=== PATIENT | female | born 1970 | race Hispanic/Latino ===

== ENCOUNTER 2019-06-15 11:32 | Emergency (ER) | payer MEDICAID, OTHER ==
[2019-06-15 12:40] VITALS: BP 139/85
[2019-06-15] MEDS ORDERED: BUTALB/ACETAMINOPHEN/CAFFEINE TAB PO ONE (13:53)
--- NOTE | 2019-06-15 14:34 | Emergency Department Report ---
ED Seizure HPI - General Chief Complaint: Seizure Stated Complaint: SEIZURES Time Seen by Provider: 06/15/19 13:53 Source: patient Mode of arrival: Stretcher Limitations: No Limitations - History of Present Illness Initial Comments: 48-year-old female with history of nonepileptic seizures, depression presents to ED from [facility] for evaluation. Patient states she was sent to the ED because she had 2 seizures on yesterday. Patient states she currently takes Lamictal and Topamax. Patient has been seen previously by neurologist, has had EEGs as well. Patient states one physician believes she may be having basilar migraines, not actual seizures. Patient states she has an appointment in a few months with a seizure specialist. Patient is currently at her baseline. No seizures today. Only complaining of a mild headache, which usually occurs after she has her seizures. MD Complaint: seizure -: days(s) (1) Description of Episode: loss of consciousness, post-event confusion Witnessed:: Yes Trauma: No Seizure History: known seizure disorder Associated Symptoms: denies other symptoms Treatments Prior to Arrival: benzodiazepines (ativan) - Related Data Allergies Allergy/AdvReac Type Severity Reaction Status Date / Time No Known Allergies Allergy Unverified 06/15/19 12:36 ED Review of Systems ROS: Stated complaint: SEIZURES Other details as noted in HPI Comment: All other systems reviewed and negative Constitutional: denies: chills, fever Neurological: headache, other (seizure activity reported on yesterday) ED Past Medical Hx - Past Medical History Previous Medical History?: Yes Hx Diabetes: Yes Hx Seizures: Yes Hx Psychiatric Treatment: Yes - Surgical History Past Surgical History?: No - Social History Smoking Status: Never Smoker Substance Use Type: None ED Physical Exam - General Limitations: No Limitations General appearance: alert, in no apparent distress - Head Head exam: Present: atraumatic, normocephalic - Eye Eye exam: Present: normal appearance, PERRL, EOMI - ENT ENT exam: Present: mucous membranes moist - Neck Neck exam: Present: normal inspection - Respiratory Respiratory exam: Present: normal lung sounds bilaterally. Absent: respiratory distress - Cardiovascular Cardiovascular Exam: Present: regular rate, normal rhythm - GI/Abdominal GI/Abdominal exam: Absent: distended - Extremities Exam Extremities exam: Present: normal inspection - Neurological Exam Neurological exam: Present: alert, oriented X3, CN II-XII intact. Absent: motor sensory deficit - Psychiatric Psychiatric exam: Present: normal affect, normal mood - Skin Skin exam: Present: warm, dry, intact, normal color. Absent: rash ED Course Vital Signs 06/15/19 12:38 Temperature 98.5 F Pulse Rate 85 Respiratory 18 Rate Blood Pressure 139/85 O2 Sat by Pulse 97 Oximetry ED Medical Decision Making - Medical Decision Making Patient is currently at her baseline. Currently on medication for her seizures which patient states is increased by [facility]. Neuro exam is nonfocal. No seizures today. Patient does not require any workup at this time. Patient advised to follow-up with her neurologist and primary care physician upon discharge from [place]. - Differential Diagnosis seizure Critical care attestation.: If time is entered above; I have spent that time in minutes in the direct care of this critically ill patient, excluding procedure time. ED Disposition Clinical Impression: Seizure disorder Disposition: DC-01 TO HOME OR SELFCARE Is pt being admited?: No Condition: Stable Instructions: Non-epileptic Seizures (ED) Additional Instructions: Patient reports she should be taking topamax 25 mg every other day, per her physician. Referrals: PRIMARY CARE, [Primary Care Provider] - [facility] Time of Disposition: 14:40
== END 2019-06-15 15:02 | disposition home or self-care (01) ==
LOC: ED 11:32
DX: G40.909 Epilepsy, unspecified, not intractable, without status epilepticus (principal); F32.9 Major depressive disorder, single episode, unspecified; E11.9 Type 2 diabetes mellitus without complications
CPT/HCPCS: 99282

== ENCOUNTER 2020-09-13 13:10 | Outpatient (CLI) | payer OTHER ==
--- NOTE | 2020-09-13 14:26 | XRay Report ---
CERVICAL SPINE 3 VIEWS INDICATION / CLINICAL INFORMATION: NECK PAIN. COMPARISON: None available. FINDINGS: VERTEBRAE: No acute fracture. No significant malalignment. DISC SPACES / FACET JOINTS:Moderate intervertebral disc space narrowing at C5-6 and C6-7. There is ma rginal osteophytosis at these levels, as well. Mild facet degenerative arthrosis. PARASPINAL SOFT TISSUES:No significant abnormality. ADDITIONAL FINDINGS: None. Signer Name: Ruddy Luna MD Signed: 09/13/2020 2:22 PM Workstation Name: [id number]
--- NOTE | 2020-09-13 14:27 | XRay Report ---
LEFT HIP 3 VIEW(S) INDICATION / CLINICAL INFORMATION: LEFT HIP PAIN COMPARISON: None available. FINDINGS: BONES / JOINT(S): No acute fracture or subluxation. No significant arthritis. SOFT TISSUES: No significant abnormality. ADDITIONAL FINDINGS: None. Signer Name: Ruddy Luna MD Signed: 09/13/2020 2:22 PM Workstation Name: [id number]
== END 2020-09-13 13:11 | disposition home or self-care (01) ==
LOC: XRAY 13:10
PROVIDERS: ATTEND Internal Medicine
DX: M47.812 Spondylosis without myelopathy or radiculopathy, cervical region (principal); M48.02 Spinal stenosis, cervical region; M25.552 Pain in left hip
CPT/HCPCS: 72040